=== PATIENT | female | born 1975 | race Caucasian/White ===

== ENCOUNTER → 2016-06-27 | Outpatient (REF) | payer OTHER ==
[2016-06-27 11:44] LABS: MEAN CORPUSCULAR VOLUME 81.2 fl (80.0-96.0); RED CELL DISTRIBUTION WIDTH 14.4 % (11.5-14.5); WHITE BLOOD COUNT 5.9 K/mm3 (4.0-10.0)
[2016-06-27 11:57] LABS: VITAMIN B12 LEVEL 773 PG/ML (247-911)
[2016-06-27 12:18] LABS: ALBUMIN 3.4 GM/DL (3.2-5.2); ALBUMIN/GLOBULIN RATIO 1.03 (1.00-1.93); ALKALINE PHOSPHATASE 70 U/L (45-117); ALT/SGPT 19 U/L (12-78); ANION GAP 8 MEQ/L (8-16); AST/SGOT 10 U/L (15-37); BILIRUBIN,TOTAL 0.2 MG/DL (0.2-1.0); BLOOD UREA NITROGEN 16 MG/DL (7-18); CALCIUM LEVEL 8.4 MG/DL (8.5-10.1); CARBON DIOXIDE LEVEL 24 MEQ/L (21-32); CHLORIDE LEVEL 109 MEQ/L (98-107); CREATININE FOR GFR 0.62 MG/DL (0.55-1.02); FERRITIN 4 NG/ML (8-252); GLOMERULAR FILTRATION RATE > 60.0 (>60); GLUCOSE, FASTING 81 MG/DL (70-105); POTASSIUM SERUM 5.1 MEQ/L (3.5-5.1); SODIUM LEVEL 141 MEQ/L (136-145); TOTAL PROTEIN 6.7 GM/DL (6.4-8.2)
== END ==
LOC: M SFHCLERA 09:50
PROVIDERS: ATTEND Physician Assistant
DX: D50.8 Other iron deficiency anemias (principal); Z98.84 Bariatric surgery status; E55.9 Vitamin D deficiency, unspecified

== ENCOUNTER → 2017-01-23 | Outpatient (CLI) | payer OTHER ==
[2017-01-23 18:29] LABS: VITAMIN B12 LEVEL 880 PG/ML (247-911)
[2017-01-23 18:41] LABS: ALBUMIN 3.6 GM/DL (3.2-5.2); ALBUMIN/GLOBULIN RATIO 1.13 (1.00-1.93); ALKALINE PHOSPHATASE 69 U/L (45-117); ALT/SGPT 25 U/L (12-78); ANION GAP 9 MEQ/L (8-16); AST/SGOT 13 U/L (7-37); BILIRUBIN,TOTAL 0.2 MG/DL (0.2-1.0); BLOOD UREA NITROGEN 14 MG/DL (7-18); CALCIUM LEVEL 8.2 MG/DL (8.5-10.1); CARBON DIOXIDE LEVEL 23 MEQ/L (21-32); CHLORIDE LEVEL 112 MEQ/L (98-107); CREATININE FOR GFR 0.63 MG/DL (0.55-1.02); FERRITIN 9 NG/ML (8-252); GLOMERULAR FILTRATION RATE > 60.0 (>60); GLUCOSE, FASTING 76 MG/DL (70-105); MAGNESIUM LEVEL 2.5 MG/DL (1.8-2.4); PHOSPHORUS LEVEL 4.4 MG/DL (2.5-4.9); POTASSIUM SERUM 4.6 MEQ/L (3.5-5.1); SODIUM LEVEL 144 MEQ/L (136-145); TOTAL PROTEIN 6.8 GM/DL (6.4-8.2)
[2017-01-23 19:38] LABS: BASO # 0.1 10^3/uL (0.0-0.2); BASO % 1.3 % (0.0-1.0); EOS # 0.1 10^3/uL (0.0-0.50); EOS % 2.3 % (0.0-3.0); IMMATURE GRANULOCYTE % 0.2 % (0-0); LYMPH # 1.9 10^3/uL (1.5-4.5); LYMPH % 35.9 % (24.0-44.0); MEAN CORPUSCULAR HEMOGLOBIN 28.1 pg (27.0-33.0); MEAN CORPUSCULAR HGB CONC 31.5 g/dl (32.0-36.5); MEAN CORPUSCULAR VOLUME 89.4 fl (80.0-96.0); MONO # 0.4 10^3/uL (0.0-0.8); MONO % 7.1 % (0.0-5.0); NEUTROPHILS # 2.8 10^3/uL (1.8-7.7); NEUTROPHILS % 53.2 % (36.0-66.0); PLATELET COUNT, AUTOMATED 222 10^3/uL (150-450); RED CELL DISTRIBUTION WIDTH 13.9 % (11.5-14.5); WHITE BLOOD COUNT 5.2 10^3/uL (4.0-10.0)
[2017-01-26 10:41] LABS: PRETREATED FOLATE FOR RBCFOL 14.6 NG/ML
== END ==
LOC: M LRY 10:36
PROVIDERS: ATTEND Surgery
DX: K91.2 Postsurgical malabsorption, not elsewhere classified (principal); E55.9 Vitamin D deficiency, unspecified; Z98.84 Bariatric surgery status

== ENCOUNTER → 2017-03-12 | Outpatient (REF) | payer OTHER | LOC: M SFHCLERA 19:39 | DX: R31.9 Hematuria, unspecified (principal) | CPT/HCPCS: 87186 ==

== ENCOUNTER → 2017-04-20 | Outpatient (REF) | payer OTHER ==
[2017-04-20 20:28] LABS: HCG, SERUM QUANTITATIVE < 1.0 MIU/ML
== END ==
LOC: M SFHCLERA 16:20
DX: N92.6 Irregular menstruation, unspecified (principal)

== ENCOUNTER → 2017-11-21 | Outpatient (REF) | payer OTHER | LOC: M SFHCCLAY 15:51 | DX: Z98.84 Bariatric surgery status (principal); Z13.220 Encounter for screening for lipoid disorders; Z68.29 Body mass index [BMI] 29.0-29.9, adult ==

== ENCOUNTER → 2017-11-29 | Outpatient (REF) | payer OTHER ==
[2017-11-29 12:02] LABS: HEMATOCRIT 35.3 % (36.0-47.0); HEMOGLOBIN 11.5 g/dl (12.0-15.5); MEAN CORPUSCULAR HEMOGLOBIN 28.6 pg (27.0-33.0); MEAN CORPUSCULAR HGB CONC 32.6 g/dl (32.0-36.5); MEAN CORPUSCULAR VOLUME 87.8 fl (80.0-96.0); PLATELET COUNT, AUTOMATED 175 10^3/uL (150-450); RED BLOOD COUNT 4.02 10^6/uL (4.00-5.40); RED CELL DISTRIBUTION WIDTH 13.3 % (11.5-14.5); WHITE BLOOD COUNT 5.1 10^3/uL (4.0-10.0)
[2017-11-29 12:04] LABS: HEMATOCRIT 35.3 % (36.0-47.0)
[2017-11-29 12:37] LABS: ALBUMIN 3.7 GM/DL (3.2-5.2); ALBUMIN/GLOBULIN RATIO 1.32 (1.00-1.93); ALKALINE PHOSPHATASE 71 U/L (45-117); ALT/SGPT 35 U/L (12-78); ANION GAP 5 MEQ/L (8-16); AST/SGOT 16 U/L (7-37); BILIRUBIN,TOTAL 0.3 MG/DL (0.2-1.0); BLOOD UREA NITROGEN 15 MG/DL (7-18); CALCIUM LEVEL 8.4 MG/DL (8.5-10.1); CARBON DIOXIDE LEVEL 27 MEQ/L (21-32); CHLORIDE LEVEL 113 MEQ/L (98-107); CHOLESTEROL LEVEL 149 MG/DL (<200); CREATININE FOR GFR 0.71 MG/DL (0.55-1.30); GLOMERULAR FILTRATION RATE > 60.0 (>58); GLUCOSE, FASTING 82 MG/DL (70-100); HDL CHOLESTEROL 39 MG/DL (>40); IRON (FE) 117 UG/DL (50-170); LDL CHOLESTEROL 89 MG/DL (<100); NON-HDL-C 110 MG/DL; PERCENT SATURATION 28.1 % (13.2-45.0); POTASSIUM SERUM 4.7 MEQ/L (3.5-5.1); SODIUM LEVEL 145 MEQ/L (136-145); TOTAL IRON BINDING CAPACITY 417 UG/DL (250-450); TOTAL PROTEIN 6.5 GM/DL (6.4-8.2); TRIGLYCERIDES LEVEL 106 MG/DL (<150)
[2017-11-29 12:43] LABS: TOTAL 25(OH) VITAMIN D 32.7 NG/ML (30.0-100.0)
[2017-11-30 11:30] LABS: PRETREATED FOLATE FOR RBCFOL 13.7 NG/ML
== END ==
LOC: M SFHCCLAY 08:28
DX: Z98.84 Bariatric surgery status (principal); Z13.220 Encounter for screening for lipoid disorders; Z68.29 Body mass index [BMI] 29.0-29.9, adult
CPT/HCPCS: 83550

== ENCOUNTER → 2017-12-24 | Outpatient (CLI) | payer OTHER | LOC: M RAD 08:45 | DX: Z12.31 Encounter for screening mammogram for malignant neoplasm of breast (principal) | CPT/HCPCS: 77067 ==

== ENCOUNTER 2018-02-28 08:02 | Day surgery (SDC) | payer OTHER ==
[~2018-02-28] VITALS: Ht 154.9 cm; Wt 71.7 kg
[~2018-02-28 08:02] MED LIST: B-12100T2 PO; BIOT2500 PO; CALCTAB9; CENTCHW4 PO; CETI10TA; ESCI10TA2; FERR1TAB8; FIBE62TA; LIDOCAINE 2% INJ 100 MG/5 ML SDV (FOR ANES.) As Ordered ONE; NS 1,000 ML IV ONE; PROPOFOL 200 MG/20 ML VIAL As Ordered ONE; VITA100066 PO
--- NOTE | 2018-02-28 09:57 | ROOR ---
Patient Name: Kacy Ross Procedure Date: 02/28/2018 9:37 AM Date of : 1975 Age: 42 Room: [facility] Gender: Female Note Status: Finalized Procedure: Colonoscopy Indications: Screening in patient at increased risk: Colorectal cancer in mother before age 60 Providers: Cam ORDONEZ MD Referring MD: Katelin GRIFFITHS DO Requesting Provider: Medicines: Monitored Anesthesia Care Complications: No immediate complications. Procedure: Pre-Anesthesia Assessment: - The heart rate, respiratory rate, oxygen saturations, blood pressure, adequacy of pulmonary ventilation, and response to care were monitored throughout the procedure. The Colonoscope was introduced through the anus and advanced to the cecum, identified by appendiceal orifice and ileocecal valve. The colonoscopy was performed without difficulty. The patient tolerated the procedure well. The quality of the bowel preparation was good. Findings: The perianal and digital rectal examinations were normal. Internal hemorrhoids were found during retroflexion. The entire examined colon appeared normal on direct and retroflexion views. Impression: - Internal hemorrhoids. - The entire examined colon is normal on direct and retroflexion views. - No specimens collected. Recommendation: - Repeat colonoscopy in 5 years for screening purposes. Cam Ordonez MD Cam ORDONEZ MD 02/28/2018 9:57:13 AM This report has been signed electronically. Number of Addenda: 0 Note Initiated On: 02/28/2018 9:37 AM Estimated Blood Loss: Estimated blood loss: none.
[2018-02-28 10:15] VITALS: BP 107/56
== END 2018-02-28 10:26 | disposition home or self-care (01) ==
LOC: M OPP 08:02
PROVIDERS: ATTEND Internal Medicine Gastroenterology
DX: K64.8 Other hemorrhoids (principal); Z12.11 Encounter for screening for malignant neoplasm of colon; Z80.0 Family history of malignant neoplasm of digestive organs

== ENCOUNTER 2018-07-31 23:58 | Inpatient (IN) | payer OTHER ==
[~2018-07-31] VITALS: Ht 152.4 cm; Wt 70.6 kg
[~2018-07-31 23:58] MED LIST changes: -CALCTAB9; +CALCTAB9 PO; -CETI10TA; +CETI10TA PO; -ESCI10TA2; +ESCI10TA2 PO; -FERR1TAB8; +FERR1TAB8 PO; -LIDOCAINE 2% INJ 100 MG/5 ML SDV (FOR ANES.) As Ordered ONE; -NS 1,000 ML IV ONE; -PROPOFOL 200 MG/20 ML VIAL As Ordered ONE
[2018-08-01 00:33] LABS: BASO # 0.1 10^3/uL (0.0-0.2); BASO % 1.1 % (0.0-1.0); EOS # 0.2 10^3/uL (0.0-0.50); HEMATOCRIT 38.7 % (36.0-47.0); HEMOGLOBIN 12.5 g/dl (12.0-15.5); LYMPH # 2.2 10^3/uL (1.5-4.5); LYMPH % 29.6 % (24.0-44.0); MEAN CORPUSCULAR HEMOGLOBIN 28.9 pg (27.0-33.0); MEAN CORPUSCULAR HGB CONC 32.3 g/dl (32.0-36.5); MEAN CORPUSCULAR VOLUME 89.6 fl (80.0-96.0); MONO # 0.6 10^3/uL (0.0-0.8); MONO % 7.8 % (0.0-5.0); NEUTROPHILS # 4.2 10^3/uL (1.8-7.7); NEUTROPHILS % 58.2 % (36.0-66.0); PLATELET COUNT, AUTOMATED 212 10^3/uL (150-450); RED BLOOD COUNT 4.32 10^6/uL (4.00-5.40); WHITE BLOOD COUNT 7.3 10^3/uL (4.0-10.0)
[2018-08-01 00:58] LABS: AMPHETAMINES LEVEL URINE NEGATIVE (NEGATIVE); BARBITURATES URINE NEGATIVE (NEGATIVE); BENZODIAZEPINES URINE NEGATIVE (NEGATIVE); CANNABINOIDS URINE NEGATIVE (NEGATIVE); COCAINE METABOLITE URINE NEGATIVE (NEGATIVE); METHADONE URINE NEGATIVE (NEGATIVE); OPIATES URINE NEGATIVE (NEGATIVE); PHENCYCLIDINE URINE NEGATIVE (NEGATIVE)
[2018-08-01 01:01] LABS: ACETAMINOPHEN LEVEL < 2.0 UG/ML (10.0-30.0); ALBUMIN 3.9 GM/DL (3.2-5.2); ALT/SGPT 25 U/L (12-78); BILIRUBIN,DIRECT 0.1 MG/DL (0.0-0.2); BILIRUBIN,TOTAL 0.2 MG/DL (0.2-1.0); BLOOD UREA NITROGEN 14 MG/DL (7-18); CALCIUM LEVEL 8.5 MG/DL (8.5-10.1); CARBON DIOXIDE LEVEL 26 MEQ/L (21-32); CHLORIDE LEVEL 111 MEQ/L (98-107); CPK CREATINE PHOSPHOKINASE 77 U/L (26-192); ETHYL ALCOHOL (ETHANOL) < 0.003 % (0.000-0.010); GLOMERULAR FILTRATION RATE > 60.0 (>58); GLUCOSE, FASTING 91 MG/DL (70-100); POTASSIUM SERUM 3.8 MEQ/L (3.5-5.1); SALICYLATE LEVEL < 1.7 MG/DL (5.0-30.0); SODIUM LEVEL 143 MEQ/L (136-145); TOTAL PROTEIN 7.3 GM/DL (6.4-8.2)
[2018-08-01 01:07] LABS: HCG, SERUM QUALITATIVE NEGATIVE (NEGATIVE)
--- NOTE | 2018-08-01 02:04 | ECGEPIP ---
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
[2018-08-01] MEDS ORDERED: FIBE62TA PO (08:07)
[2018-08-01] MEDS ORDERED: [UNRECOGNIZED DRUG - OTHER] PO (08:07)
[2018-08-01] MEDS ORDERED: SIME80TA PO (08:07)
[2018-08-01] MEDS ORDERED: VITA10002 PO (08:07)
[2018-08-01] MEDS ORDERED: traZODone 50 MG TAB PO PRN (11:45)
[2018-08-01] MEDS ORDERED: ACETAMINOPHEN TAB 650MG DOSE (2X325MG) PO PRN (11:45)
[2018-08-01] MEDS ORDERED: MOM 30ML SUSPENSION UDC PO PRN (11:45)
[2018-08-01] MEDS ORDERED: MAALOX 30 ML SUSP *UDC PO PRN (11:45)
[2018-08-02 07:01] VITALS: BP 126/66
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
[2018-08-02 12:21] VITALS: BP 134/78
[2018-08-02] MEDS: FERROUS SULFATE 325MG TAB PO SCH (12:25)
[2018-08-02] MEDS: VITAMIN D 1,000 INTERNATIONAL UNITS TABLET PO SCH (12:25)
[2018-08-02] MEDS: CYANOCOBALAMIN 500 MCG TAB PO SCH (12:25)
[2018-08-02] MEDS: CETIRIZINE (ZyrTEC) 10 MG TAB PO SCH (12:25)
[2018-08-02] MEDS ORDERED: VENLAFAXINE **XR** 37.5 MG CAPSULE PO ONE (13:00)
--- NOTE | 2018-08-02 14:08 | HPEPDOC ---
General Date of Admission Aug 01, 2018 at 11:42 Date of Service: Aug 02, 2018 Attending Physician: GOYO FAYE MD Chief Complaint The patient is a 42-year-old female admitted with a reason for visit of Unspecified Depressive Disorder. History of Present Illness Patient is a 42-year-old female, admitted to inpatient psychiatric unit on account of depression, anxiety and suicide attempt with drug overdose. She has a prior medical history significant for morbid obesity and is status post gastric bypass 3 years ago. On assessment, she denies any nausea, vomiting, constipation, diarrhea, chest pain, shortness of breath. She requests multivitam ins be restarted. Home Medications Scheduled Biotin (Biotin) 2,500 Mcg Cap, 2,500 MCG PO DAILY, (Reported) Calcium Citrate/Vitamin D3 (Calcitrate + Vit D Caplet) 1 Tab Tab, 2 TAB PO QHS, (Reported) Calcium Polycarbophil (Fiber-Lax) 625 Mg Tablet, 1,250 MG PO QHS, (Reported) Cetirizine HCl (Cetirizine HCl) 10 Mg Tab, 10 MG PO DAILY, (Reported) Cholecalciferol (Vitamin D3) (Vitamin D3) 1,000 Unit Tab, 1,000 UNIT PO DAILY, (Reported) Cyanocobalamin (Vitamin B-12) (Vitamin B-12) 1,000 Mcg Tablet, 1,000 MCG PO DAILY, (Reported) Escitalopram Oxalate (Escitalopram Oxalate) 10 Mg Tab, 10 MG PO DAILY, (Reported) Ferrous Sulfate (Ferrous Sulfate) 325 Mg Tab, 650 MG PO DAILY, (Reported) Pedi Multivit 158/Iron/Vit K1 (Cerovite Jr Tablet Chew) 1 Each Tab.chew, 2 CHW PO DAILY, (Reported) Scheduled PRN Simethicone (Simethicone) 80 Mg Tab.chew, 80 MG PO QID PRN for GAS PAIN, (Reported) Allergies Coded Allergies: No Known Allergies (Unverified , 08/01/18) Past Medical History Medical History Obesity, depression, anxiety. Surgical History Bypass surgery. Family History Father: Diabetes mellitus, hypertension, hyperlipidemia. Mother: Cancer of the colon, diabetes mellitus. A-FIB/CHADSVASC A-FIB History Current/History of A-Fib/PAF?: No Current PO Anticoag Therapy: No Review of Systems Other systems A pertinent 10 point ROS was completed, negative except as noted in the HPI Physical Examination General Exam: Positive: Alert, Cooperative, No Acute Distress Eye Exam: Positive: PERRLA ENT Exam: Positive: Atraumatic, Mucous membr. moist/pink Neck Exam: Positive: Supple; Negative: JVD, thyromegaly Chest Exam: Positive: Clear to auscultation, Normal air movement; Negative: Rales, Rhonchi Heart Exam: Positive: Rate Normal, Regular Rhythm Extremity Exam: Negative: Clubbing, Cyanosis, Edema Skin Exam: Positive: Nl turgor and temperature; Negative: Rash, Breakdown Neuro Exam: Positive: Normal Speech, Strength at 5/5 X4 ext Psych Exam: Positive: Mental status NL; Negative: Anxiety Vital Signs Vital Signs Date Time Temp Pulse Resp B/P (MAP) Pulse Ox O2 Delivery O2 Flow Rate FiO2 08/02/18 12:21 98.9 60 16 134/78 (96) 08/01/18 10:40 97 Room Air Assessment/Plan Morbid obesity -Status post gastric bypass surgery -Restart all vitamins for patient Depression and anxiety -Management by primary team DVT prophylaxis -Patient is frequently ambulatory and has no need for DVT prophylaxis at this time Plan / VTE VTE Prophylaxis Ordered?: No VTE Exclusion Mechanical Proph: Low Risk for VTE PANCHO HOLLIDAY Aug 02, 2018 14:08
[2018-08-02] MEDS: FOLIC ACID 1 MG TAB PO SCH (14:32)
[2018-08-02 18:33] VITALS: BP 129/64
[2018-08-02] MEDS: FIBER-CON 625 MG TAB PO SCH (20:28)
[2018-08-03 06:45] VITALS: BP 142/70
[2018-08-03] MEDS: CYANOCOBALAMIN 500 MCG TAB PO SCH (08:16)
[2018-08-03] MEDS: FERROUS SULFATE 325MG TAB PO SCH (08:16)
[2018-08-03] MEDS: VITAMIN D 1,000 INTERNATIONAL UNITS TABLET PO SCH (08:16)
[2018-08-03] MEDS: FOLIC ACID 1 MG TAB PO SCH (08:16)
[2018-08-03] MEDS: MULTIVITAMINS CHILDREN'S CHEWABLE TABLET PO SCH (08:16)
[2018-08-03] MEDS: CETIRIZINE (ZyrTEC) 10 MG TAB PO SCH (08:16)
[2018-08-03] MEDS ORDERED: VENLAFAXINE **XR** 37.5 MG CAPSULE PO SCH (09:00)
[2018-08-03] MEDS: SIMETHICONE 80 MG CHEW TAB PO PRN (12:39)
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
[2018-08-03 18:00] VITALS: BP 130/72
[2018-08-03] MEDS: FIBER-CON 625 MG TAB PO SCH (20:42)
[2018-08-04 06:35] VITALS: BP 130/64
[2018-08-04] MEDS: MULTIVITAMINS CHILDREN'S CHEWABLE TABLET PO SCH (08:03)
[2018-08-04] MEDS: FOLIC ACID 1 MG TAB PO SCH (08:03)
[2018-08-04] MEDS: VENLAFAXINE **XR** 75MG CAPSULE PO SCH (08:03)
[2018-08-04] MEDS: CYANOCOBALAMIN 500 MCG TAB PO SCH (08:03)
[2018-08-04] MEDS: VITAMIN D 1,000 INTERNATIONAL UNITS TABLET PO SCH (08:03)
[2018-08-04] MEDS: CETIRIZINE (ZyrTEC) 10 MG TAB PO SCH (08:03)
[2018-08-04] MEDS: FERROUS SULFATE 325MG TAB PO SCH (08:03)
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
[2018-08-04 18:00] VITALS: BP 142/85
[2018-08-04] MEDS: FIBER-CON 625 MG TAB PO SCH (20:08)
[2018-08-04] MEDS: SIMETHICONE 80 MG CHEW TAB PO PRN (21:59)
[2018-08-05 06:16] VITALS: BP 114/58
[2018-08-05] MEDS: VITAMIN D 1,000 INTERNATIONAL UNITS TABLET PO SCH (08:24)
[2018-08-05] MEDS: FERROUS SULFATE 325MG TAB PO SCH (08:24)
[2018-08-05] MEDS: VENLAFAXINE **XR** 75MG CAPSULE PO SCH (08:24)
[2018-08-05] MEDS: MULTIVITAMINS CHILDREN'S CHEWABLE TABLET PO SCH (08:24)
[2018-08-05] MEDS: FOLIC ACID 1 MG TAB PO SCH (08:24)
[2018-08-05] MEDS: CETIRIZINE (ZyrTEC) 10 MG TAB PO SCH (08:25)
[2018-08-05] MEDS: CYANOCOBALAMIN 500 MCG TAB PO SCH (08:25)
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
[2018-08-05] MEDS: SIMETHICONE 80 MG CHEW TAB PO PRN (18:05)
[2018-08-05 18:09] VITALS: BP 150/79
[2018-08-05] MEDS: FIBER-CON 625 MG TAB PO SCH (20:23)
[2018-08-06 06:38] VITALS: BP 104/69
[2018-08-06] MEDS: VITAMIN D 1,000 INTERNATIONAL UNITS TABLET PO SCH (08:25)
[2018-08-06] MEDS: CYANOCOBALAMIN 500 MCG TAB PO SCH (08:25)
[2018-08-06] MEDS: FERROUS SULFATE 325MG TAB PO SCH (08:25)
[2018-08-06] MEDS: FOLIC ACID 1 MG TAB PO SCH (08:25)
[2018-08-06] MEDS: VENLAFAXINE **XR** 75MG CAPSULE PO SCH (08:25)
[2018-08-06] MEDS: MULTIVITAMINS CHILDREN'S CHEWABLE TABLET PO SCH (08:25)
[2018-08-06] MEDS: CETIRIZINE (ZyrTEC) 10 MG TAB PO SCH (08:25)
[2018-08-06] MEDS ORDERED: VENL75CA47 PO (08:35)
[2018-08-06] MEDS ORDERED: TRAZ-252 PO (08:35)
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
== END 2018-08-06 11:45 | disposition home or self-care (01) | DRG 751 ==
LOC: M ED 23:58 → M ED INP 08-01 11:42 → M PSY 08-01 12:25
PROVIDERS: ADMIT Psychiatry & Neurology Psychiatry; ATTEND Psychiatry & Neurology Psychiatry
DX: F33.1 Major depressive disorder, recurrent, moderate (principal); E66.01 Morbid (severe) obesity due to excess calories; F41.9 Anxiety disorder, unspecified; Z79.899 Other long term (current) drug therapy

== ENCOUNTER 2018-10-03 09:54 | Inpatient (IN) | payer OTHER ==
[~2018-10-03] VITALS: Ht 152.4 cm; Wt 68.8 kg
[~2018-10-03 09:54] MED LIST changes: +CYAN100049 PO; +FIBE62TA PO; +SIME80TA PO; +TRAZ-252 PO; +VENL75CA47 PO; +[UNRECOGNIZED DRUG - OTHER] PO
[2018-10-03] MEDS ORDERED: VENL150C43 PO (10:28)
[2018-10-03] MEDS ORDERED: EFFE150C2 PO (10:28)
[2018-10-03 13:18] LABS: HEMATOCRIT 39.3 % (36.0-47.0); HEMOGLOBIN 12.8 g/dl (12.0-15.5); MEAN CORPUSCULAR HGB CONC 32.6 g/dl (32.0-36.5); MEAN CORPUSCULAR VOLUME 88.9 fl (80.0-96.0); PLATELET COUNT, AUTOMATED 203 10^3/uL (150-450); RED BLOOD COUNT 4.42 10^6/uL (4.00-5.40); WHITE BLOOD COUNT 6.2 10^3/uL (4.0-10.0)
[2018-10-03 13:32] LABS: ACETAMINOPHEN LEVEL < 2.0 UG/ML (10.0-30.0); ALBUMIN 3.9 GM/DL (3.2-5.2); ALT/SGPT 20 U/L (12-78); BILIRUBIN,DIRECT 0.1 MG/DL (0.0-0.2); BILIRUBIN,TOTAL 0.4 MG/DL (0.2-1.0); BLOOD UREA NITROGEN 14 MG/DL (7-18); CALCIUM LEVEL 8.6 MG/DL (8.5-10.1); CARBON DIOXIDE LEVEL 21 MEQ/L (21-32); CHLORIDE LEVEL 111 MEQ/L (98-107); CREATININE FOR GFR 0.69 MG/DL (0.55-1.30); ETHYL ALCOHOL (ETHANOL) < 0.003 % (0.000-0.010); GLOMERULAR FILTRATION RATE > 60.0 (>58); GLUCOSE, FASTING 149 MG/DL (70-100); SALICYLATE LEVEL < 1.7 MG/DL (5.0-30.0); SODIUM LEVEL 140 MEQ/L (136-145); TOTAL PROTEIN 6.6 GM/DL (6.4-8.2)
[2018-10-03 13:49] LABS: AMPHETAMINES LEVEL URINE NEGATIVE (NEGATIVE); BARBITURATES URINE NEGATIVE (NEGATIVE); BENZODIAZEPINES URINE NEGATIVE (NEGATIVE); CANNABINOIDS URINE NEGATIVE (NEGATIVE); COCAINE METABOLITE URINE NEGATIVE (NEGATIVE); METHADONE URINE NEGATIVE (NEGATIVE); OPIATES URINE NEGATIVE (NEGATIVE); PHENCYCLIDINE URINE NEGATIVE (NEGATIVE)
--- NOTE | 2018-10-03 14:17 | REP ---
TRIMESTER OBSTETRIC SONOGRAPHY: HISTORY: Supervision of . FINDINGS: Transvaginal and transabdominal scanning is performed. Uterus is somewhat enlarged with overall dimensions of 11.4 x 4.9 x 6.2 cm. Both the uterine myometrium and the uterine endometrium are heterogeneous and somewhat difficult to differentiate. To the left in the fundal endometrium, there is a small anechoic area, which could be an early gestational sac. No embryonic pole or yolk sac is seen. Mean sac size diameter is 4.5 mm, which would correspond to a 2-cjue-6-day gestational age estimate. No free fluid is seen. There is a 2.1 cm cyst in the right ovary. Right ovary dimensions are 4.0 x 1.8 x 2.9 cm. Doppler flow in the right ovary is normal with resistive index 0.47. Left ovary measures 4.2 x 2.0 x 2.7 cm. Its Doppler flow is normal with resistive index 0.53. There is 2.0 cm cystic area in the left ovary. There appear to be prominent parametria veins. IMPRESSION: viability cannot be confirmed. Questionable early intrauterine gestational sac 6-cfti-1-day size. There is no free fluid or adnexal mass. Electronically Signed by Cristóbal Shea MD 10/03/2018 05:31 P
[2018-10-03] MEDS ORDERED: CALC-176 PO (14:33)
[2018-10-03] MEDS ORDERED: ACETAMINOPHEN TAB 650MG DOSE (2X325MG) PO PRN (15:45)
[2018-10-03 17:18] VITALS: BP 144/85
[2018-10-04 06:06] VITALS: BP 100/56
--- NOTE | 2018-10-04 11:08 | HPEPDOC ---
General Date of Admission Oct 03, 2018 at 15:35 Date of Service: Oct 04, 2018 Attending Physician: GOYO FAYE MD Chief Complaint The patient is a 43-year-old female admitted with a reason for visit of Unspecified Depressive Disorder. History of Present Illness Patient is a 43-year-old female, prior medical history significant for morbid obesity, S/P gastric bypass, admitted on account of suicidal ideation and aggressive behavior. On initial assessment. Laboratory data was significant for hCG 0.402, indicating patient was . Patient states she had performed 2 tests at home, which had been positive so this was not news to her. On assessment, she denies chest pain, denies shortness of breath, denies weakness, nausea, vomiting. She reports gestational diabetes with prior 2 pregnancies Home Medications Scheduled Biotin (Biotin) 2,500 Mcg Cap, 2,500 MCG PO DAILY, (Reported) Calcium Citrate/Vitamin D3 (Calcium Cit-Vit D 250-200 Tab) 1 Each Tablet, 2 TAB PO QHS, (Reported) Calcium Polycarbophil (Fiber-Lax) 625 Mg Tablet, 1,250 MG PO QHS, (Reported) Cetirizine HCl (Cetirizine HCl) 10 Mg Tab, 10 MG PO DAILY, (Reported) Cholecalciferol (Vitamin D3) (Vitamin D3) 1,000 Unit Tab, 1,000 UNIT PO DAILY, (Reported) Cyanocobalamin (Vitamin B-12) (Vitamin B-12) 1,000 Mcg Tablet, 1,000 MCG PO DAILY, (Reported) Ferrous Sulfate (Ferrous Sulfate) 325 Mg Tab, 650 MG PO DAILY, (Reported) Pedi Multivit 158/Iron/Vit K1 (Cerovite Jr Tablet Chew) 1 Each Tab.chew, 2 CHW PO DAILY, (Reported) Venlafaxine HCl (Venlafaxine HCl ER) 150 Mg Cap.er.24h, 150 MG PO DAILY, (Reported) Scheduled PRN Simethicone (Simethicone) 80 Mg Tab.chew, 80 MG PO QID PRN for GAS PAIN, (Reported) Allergies Coded Allergies: No Known Allergies (Unverified , 08/01/18) Past Medical History Medical History Morbid obesity Surgical History Gastric bypass Family History Father: Diabetes mellitus Mother: Colon cancer. Sibling: Diabetes mellitus, age 44 Social History Denies tobacco, alcohol, polysubstance abuse A-FIB/CHADSVASC A-FIB History Current/History of A-Fib/PAF?: No Current PO Anticoag Therapy: No Review of Systems Other systems A pertinent 10 point review of systems is completed, negative except as stated in the history of presenting illness Physical Examination Other physical findings GENERAL: NAD SKIN : Warm, dry intact HEENT: Atraumatic, normocephalic, PERRL, moist mucous membrane CARDIOVASCULAR: irregular rate and rhythm, S1S2, no JVD, trace edema, distal pulses + palpable RESP: CTAB, no accessory muscle use noted ABDOMEN: BS+ non distended non tender MS: no joint deformities NEURO: Alert and oriented x 3, CN2-12 grossly intact PSYCH: no anxiety or agitation, appropriate mood and affect. Vital Signs Vital Signs Date Time Temp Pulse Resp B/P (MAP) Pulse Ox O2 Delivery O2 Flow Rate FiO2 10/04/18 06:06 99.4 75 18 100/56 (71) 10/03/18 14:20 100 Room Air Laboratory Data Labs 24H Laboratory Tests 2 10/03/18 10:41: POC Beta HCG, Quantitative 402.8 10/04/18 07:50: Bedside Glucose (Misc Panel) 162H Assessment/Plan Hyperglycemia -Random BS 149 With prior history of gestational diabetes with 2 pregnancies -Before meals, at bedtime fingersticks -check Hemoglobin A1c Arrhythmia -On examination -12 Lead EKG -correct electrolytes state -HCG 402 Suicidal ideation -Management by primary team Plan / VTE VTE Prophylaxis Ordered?: No VTE Exclusion Mechanical Proph: Low Risk for VTE PANCHO HOLLIDAY Oct 04, 2018 11:08
[2018-10-04] MEDS: VENLAFAXINE **XR** 75MG CAPSULE PO SCH (11:14)
[2018-10-04 12:11] LABS: HEMOGLOBIN A1c 5.4 %
[2018-10-04 18:06] VITALS: BP 136/66
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
[2018-10-05 06:49] VITALS: BP 110/56
[2018-10-05] MEDS: VENLAFAXINE **XR** 75MG CAPSULE PO SCH (08:09)
[2018-10-05 08:10] LABS: HEMATOCRIT 37.8 % (36.0-47.0); HEMOGLOBIN 12.3 g/dl (12.0-15.5); MEAN CORPUSCULAR HEMOGLOBIN 27.8 pg (27.0-33.0); MEAN CORPUSCULAR HGB CONC 32.5 g/dl (32.0-36.5); MEAN CORPUSCULAR VOLUME 85.5 fl (80.0-96.0); PLATELET COUNT, AUTOMATED 193 10^3/uL (150-450); RED BLOOD COUNT 4.42 10^6/uL (4.00-5.40); WHITE BLOOD COUNT 5.9 10^3/uL (4.0-10.0)
[2018-10-05 08:34] LABS: ALBUMIN 3.9 GM/DL (3.2-5.2); ALT/SGPT 21 U/L (12-78); BILIRUBIN,TOTAL 0.3 MG/DL (0.2-1.0); BLOOD UREA NITROGEN 11 MG/DL (7-18); CALCIUM LEVEL 8.6 MG/DL (8.5-10.1); CARBON DIOXIDE LEVEL 22 MEQ/L (21-32); CHLORIDE LEVEL 111 MEQ/L (98-107); CREATININE FOR GFR 0.67 MG/DL (0.55-1.30); GLOMERULAR FILTRATION RATE > 60.0 (>58); GLUCOSE, FASTING 120 MG/DL (70-100); MAGNESIUM LEVEL 2.4 MG/DL (1.8-2.4); POTASSIUM SERUM 3.7 MEQ/L (3.5-5.1); SODIUM LEVEL 140 MEQ/L (136-145)
[2018-10-05] MEDS: VITAMIN D 1,000 INTERNATIONAL UNITS TABLET PO SCH (11:19)
[2018-10-05] MEDS: FERROUS SULFATE 325MG TAB PO SCH (11:19)
[2018-10-05] MEDS: CYANOCOBALAMIN 500 MCG TAB PO SCH (11:19)
[2018-10-05] MEDS: MULTIVITAMINS CHILDREN'S CHEWABLE TABLET PO SCH (11:20)
--- NOTE | 2018-10-05 15:41 | MHIPNPDOC ---
[facility] Progress Note Progress Note DATE OF SERVICE: 10/05/18 HISTORY: This is a 43-year-old white female living with her boyfriend. Patient has had recent suicidal ideation, threatening to jump in front of traffic. She has been cutting her left wrist and forearm. She is having recent frequent conflicts with her boyfriend. The patient has been feeling more depressed of late. A major precipitating stressor is that of her 18-year-old son who moved out of the house recently . Patient has a chronic history of anxiety and worry. Her depression dates back to childhood, but worsened after her father in 2005. Patient has been on Effexor for several months now, ever since being hospitalized here under the care of Dr. Amador. 2 months ago. Patient states her appetite is improving. She reports her mood is more stable. She is starting to work on a journal. She finds this therapeutic. She did have a mild panic attack this morning. She feels positive about her . Her boyfriend has been supportive. She is tolerating the Effexor well. She has no other complaints VITAL SIGNS: See below. NEW TEST RESULTS: None noted. CURRENT MEDICATIONS: See below. MENTAL STATUS EXAMINATION: Patient is a. 43-year old female, who is living with her boyfriend. Speech: Is, appropriate. Language skills are, within normal limits. Thought processes including: Intact. Thought content:. Appears more positive. Abstract reasoning, and computation:, Intact. Description of associations: Within normal limits. Description of abnormal or psychotic thoughts: None noted. Judgment:. Improving. Insight: Fair. Orientation:. Oriented 3. Recent and remote memory: Fully intact. Attention span and concentration: Within normal limits. Language:, Appropriate. Fund of knowledge:, Within normal limits. Mood:. Some dysphoria with mild depression. Affect: Brighter. DIAGNOSES: 1. Major depression, recurrent. 2., Generalized anxiety disorder. ASSESSMENT: Patient appears to be responding gradually to medication, and milieu therapy treatment MANAGEMENT PLAN:. Continue present management. TIME SPENT:, 30 minutes. Vital Signs Vital Signs Date Time Temp Pulse Resp B/P (MAP) Pulse Ox O2 Delivery O2 Flow Rate FiO2 10/05/18 08:28 Room Air 10/05/18 06:49 99.0 78 18 110/56 (74) 10/03/18 14:20 100 Laboratory Data 24H Labs Laboratory Tests 2 8/16/19 17:08: Bedside Glucose (Misc Panel) 76 10/05/18 06:11: Bedside Glucose (Misc Panel) 83 10/05/18 07:50: Nucleated Red Blood Cells % (auto) 0.0, Anion Gap 7L, Glomerular Filtration Rate > 60.0, Blood Urea Nitrogen 11, Creatinine 0.67, Sodium Level 140, Potassium Level 3.7, Chloride Level 111H, Carbon Dioxide Level 22, Calcium Level 8.6, Aspartate Amino Transf (AST/SGOT) 7, Alanine Aminotransferase (ALT/SGPT) 21, Alkaline Phosphatase 76, Total Bilirubin 0.3, Total Protein 7.0, Albumin 3.9, Magnesium Level 2.4, Albumin/Globulin Ratio 1.26 10/05/18 11:51: Bedside Glucose (Misc Panel) 117H CBC/BMP Laboratory Tests 10/05/18 07:50 Red Blood Count 4.42, Mean Corpuscular Volume 85.5, Mean Corpuscular Hemoglobin 27.8, Mean Corpuscular Hemoglobin Concent 32.5, Red Cell Distribution Width 12.9, Calcium Level 8.6, Aspartate Amino Transf (AST/SGOT) 7, Alanine Aminotransferase (ALT/SGPT) 21, Alkaline Phosphatase 76, Total Bilirubin 0.3, Total Protein 7.0, Albumin 3.9 Current Medications Current Medications Medications (Trade) Dose Ordered Sig/Manjinder Route PRN Reason Start Time Stop Time Status Last Admin Dose Admin Acetaminophen (Tylenol Tab) 650 mg Q6HP PRN PO HEADACHE or DISCOMFORT 10/03/18 15:45 Calcium Polycarbophil (Fiber Con) 2 ea QHS PO 10/05/18 21:00 Calcium/Vitamin D (Oscal D) 500 mg QHS PO 10/05/18 21:00 Cyanocobalamin (Vitamin B12) 1,000 mcg DAILY PO 10/05/18 09:00 10/05/18 11:19 Ferrous Sulfate (Ferrous Sulfate) 650 mg DAILY PO 10/05/18 09:00 10/05/18 11:19 Home Med (Med Rec Complete!) ASDIRECTED XX 10/03/18 14:45 10/03/18 14:45 DC Multivitamins (Fruity Chews-Children'S) 2 tab DAILY PO 10/05/18 09:00 10/05/18 11:20 Venlafaxine HCl (Effexor Xr) 150 mg DAILY PO 10/04/18 09:00 10/05/18 08:09 Vitamin D (Vitamin D) 1,000 units DAILY PO 10/05/18 09:00 10/05/18 11:19 Allergies Coded Allergies: No Known Allergies (Unverified , 08/01/18) ABENA DAMON MD Oct 05, 2018 15:41
--- NOTE | 2018-10-05 16:09 | ECGEPIP ---
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 PVCS IN BIGEMINY ARE NOW NOTED Electronically Signed on 10-05-2018 16:09:40 EDT by Agustin Vidal
[2018-10-05 18:00] VITALS: BP 132/83
[2018-10-05] MEDS: CALCIUM/VITAMIN D 500 MG TAB PO SCH (20:52)
[2018-10-05] MEDS: FIBER-CON 625 MG TAB PO SCH (20:52)
[2018-10-06 06:51] VITALS: BP 108/70
[2018-10-06] MEDS: FERROUS SULFATE 325MG TAB PO SCH (08:40)
[2018-10-06] MEDS: MULTIVITAMINS CHILDREN'S CHEWABLE TABLET PO SCH (08:40)
[2018-10-06] MEDS: VENLAFAXINE **XR** 75MG CAPSULE PO SCH (08:40)
[2018-10-06] MEDS: CYANOCOBALAMIN 500 MCG TAB PO SCH (08:41)
[2018-10-06] MEDS: VITAMIN D 1,000 INTERNATIONAL UNITS TABLET PO SCH (08:41)
[2018-10-06 18:38] VITALS: BP 138/78
[2018-10-06] MEDS: FIBER-CON 625 MG TAB PO SCH (21:09)
[2018-10-06] MEDS: CALCIUM/VITAMIN D 500 MG TAB PO SCH (21:09)
[2018-10-07 06:34] VITALS: BP 113/55
[2018-10-07] MEDS: MULTIVITAMINS CHILDREN'S CHEWABLE TABLET PO SCH (08:29)
[2018-10-07] MEDS: VITAMIN D 1,000 INTERNATIONAL UNITS TABLET PO SCH (08:29)
[2018-10-07] MEDS: VENLAFAXINE **XR** 75MG CAPSULE PO SCH (08:29)
[2018-10-07] MEDS: CYANOCOBALAMIN 500 MCG TAB PO SCH (08:30)
[2018-10-07] MEDS: FERROUS SULFATE 325MG TAB PO SCH (08:30)
--- NOTE | 2018-10-07 15:23 | MHIPNPDOC ---
[facility] Progress Note Progress Note DATE OF SERVICE: 10/06/18 HISTORY: This is a 43-year-old white female living with her boyfriend. Patient has had recent suicidal ideation, threatening to jump in front of traf fic. She has been cutting her left wrist and forearm. She is having recent frequent conflicts with her boyfriend. The patient has been feeling more depressed of late. A major precipitating stressor is that of her 18-year-old son who moved out of the house recently . Patient has a chronic history of anxiety and worry. Her depression dates back to childhood, but worsened after her father in 2005. Patient has been on Effexor for several months now, ever since being hospitalized here under the care of Dr. Amador. 2 months ago. Patient states her appetite is improving. She reports her mood is more stable. She is starting to work on a journal. She finds this therapeutic. She did have a mild panic attack this morning. She feels positive about her . Her boyfriend has been supportive. She is tolerating the Effexor well. She has no other complaints INTERVAL HISTORY: Patient reports that she had a good talk with her 13-year-old son. Apparently his father wants the 18-year-old son to return back home to live with her. She is happy about this. She wants her son together drop to college. She has had no panic attacks today. She finds the Effexor helpful. Patient's supple last night but did wake up several times in night. She finds the therapy groups helpful here VITAL SIGNS: See below. NEW TEST RESULTS: None noted. CURRENT MEDICATIONS: See below. MENTAL STATUS EXAMINATION: Patient is a. 43-year old female, who is living with her boyfriend. Speech: Is, appropriate. Language skills are, within normal limits. Thought processes including: Intact. Thought content:. Appears more brighter. Abstract reasoning, and computation:, Intact. Description of associations: Normal associations. Description of abnormal or psychotic thoughts: None noted. Judgment:. Improving. Insight: Improving Orientation:. Oriented 3. Recent and remote memory: Fully intact. Attention span and concentration: Within normal limits. Language:, Appropriate. Fund of knowledge:, Within normal limits. Mood:. Decrease of mild depression. Affect: Brighter. DIAGNOSES: 1. Major depression, recurrent. 2., Generalized anxiety disorder. ASSESSMENT: Patient appears to be responding gradually to medication, and milieu therapy treatment MANAGEMENT PLAN:. Continue present management. TIME SPENT:, 30 minutes. Vital Signs Vital Signs Date Time Temp Pulse Resp B/P (MAP) Pulse Ox O2 Delivery O2 Flow Rate FiO2 10/07/18 06:34 98.9 66 12 113/55 (74) 10/06/18 07:58 Room Air 10/03/18 14:20 100 Laboratory Data 24H Labs Laboratory Tests 2 10/06/18 16:58: Bedside Glucose (Misc Panel) 74 10/07/18 06:42: Bedside Glucose (Misc Panel) 78 10/07/18 12:22: Bedside Glucose (Misc Panel) 83 Current Medications Current Medications Medications (Trade) Dose Ordered Sig/Manjinder Route PRN Reason Start Time Stop Time Status Last Admin Dose Admin Acetaminophen (Tylenol Tab) 650 mg Q6HP PRN PO HEADACHE or DISCOMFORT 10/03/18 15:45 Calcium Polycarbophil (Fiber Con) 2 ea QHS PO 10/05/18 21:00 10/06/18 21:09 Calcium/Vitamin D (Oscal D) 500 mg QHS PO 10/05/18 21:00 10/06/18 21:09 Cyanocobalamin (Vitamin B12) 1,000 mcg DAILY PO 10/05/18 09:00 10/07/18 08:30 Ferrous Sulfate (Ferrous Sulfate) 650 mg DAILY PO 10/05/18 09:00 10/07/18 08:30 Home Med (Med Rec Complete!) ASDIRECTED XX 10/03/18 14:45 10/03/18 14:45 DC Multivitamins (Fruity Chews-Children'S) 2 tab DAILY PO 10/05/18 09:00 10/07/18 08:29 Venlafaxine HCl (Effexor Xr) 150 mg DAILY PO 10/04/18 09:00 10/07/18 08:29 Vitamin D (Vitamin D) 1,000 units DAILY PO 10/05/18 09:00 10/07/18 08:29 Allergies Coded Allergies: No Known Allergies (Unverified , 08/01/18) ABENA DAMON MD Oct 07, 2018 15:23
[2018-10-07 15:53] VITALS: BP 134/74
--- NOTE | 2018-10-07 16:21 | MHIPNPDOC ---
[facility] Progress Note Progress Note DATE OF SERVICE: 10/07/18 HISTORY: This is a 43-year-old white female living with her boyfriend. Patient has had recent suicidal ideation, threatening to jump in front of tra ffic. She has been cutting her left wrist and forearm. She is having recent frequent conflicts with her boyfriend. The patient has been feeling more depressed of late. A major precipitating stressor is that of her 18-year-old son who moved out of the house recently . Patient has a chronic history of anxiety and worry. Her depression dates back to childhood, but worsened after her father in 2005. Patient has been on Effexor for several months now, ever since being hospitalized here under the care of Dr. Amador. 2 months ago. Patient states her appetite is improving. She reports her mood is more stable. She is starting to work on a journal. She finds this therapeutic. She did have a mild panic attack this morning. She feels positive about her . Her boyfriend has been supportive. She is tolerating the Effexor well. She has no other complaints INTERVAL HISTORY: Patient reports her mood is improved. Further, she had a long talk with her friend who came in to visit last night. They have patched up their relationship. They reviewed their issues of conflict with some resolution. She feels more optimistic about the future. Concentration is improved. Level of energy is improved. Appetite is good. She slept better last night. She is hopeful about th e future. VITAL SIGNS: See below. NEW TEST RESULTS: None noted. CURRENT MEDICATIONS: See below. MENTAL STATUS EXAMINATION: Patient is a. 43-year old female, who is living with her boyfriend. Speech: Is, appropriate. Language skills are, within normal limits. Thought processes including: Intact. Thought content:. Appears much more bright. Abstract reasoning, and computation:, Intact. Description of associations: Normal associations. Description of abnormal or psychotic thoughts: None noted. Judgment:. Improving. Insight: Improving Orientation:. Oriented 3. Recent and remote memory: Fully intact. Attention span and concentration: Within normal limits. Language:, Appropriate. Fund of knowledge:, Within normal limits. Mood:. Minimal depression. Affect: Brighter. DIAGNOSES: 1. Major depression, recurrent. 2., Generalized anxiety disorder. ASSESSMENT: Patient appears to be responding gradually to medication, and milieu therapy treatment Vital Signs Date Time Temp Pulse Resp B/P (MAP) Pulse Ox O2 Delivery O2 Flow Rate FiO2 10/07/18 15:53 98.0 89 19 134/74 (94) 10/07/18 06:34 98.9 66 12 113/55 (74) 10/06/18 18:38 98.4 80 16 138/78 (98) Laboratory Tests 10/06/18 16:58: Bedside Glucose (Misc Panel) 74 10/07/18 06:42: Bedside Glucose (Misc Panel) 78 10/07/18 12:22: Bedside Glucose (Misc Panel) 83 Current Medications Medications (Trade) Dose Ordered Sig/Manjinder Route PRN Reason Start Time Stop Time Status Last Admin Dose Admin Calcium Polycarbophil (Fiber Con) 2 ea QHS PO 10/05/18 21:00 10/06/18 21:09 Calcium/Vitamin D (Oscal D) 500 mg QHS PO 10/05/18 21:00 10/06/18 21:09 Cyanocobalamin (Vitamin B12) 1,000 mcg DAILY PO 10/05/18 09:00 10/07/18 08:30 Ferrous Sulfate (Ferrous Sulfate) 650 mg DAILY PO 10/05/18 09:00 10/07/18 08:30 Multivitamins (Fruity Chews-Children'S) 2 tab DAILY PO 10/05/18 09:00 10/07/18 08:29 Venlafaxine HCl (Effexor Xr) 150 mg DAILY PO 10/04/18 09:00 10/07/18 08:29 Vitamin D (Vitamin D) 1,000 units DAILY PO 10/05/18 09:00 10/07/18 08:29 MANAGEMENT PLAN:. Staff to work on discharge planning. TIME SPENT:, 30 minutes. Vital Signs Vital Signs Date Time Temp Pulse Resp B/P (MAP) Pulse Ox O2 Delivery O2 Flow Rate FiO2 10/07/18 15:53 98.0 89 134/74 (94) 10/06/18 07:58 Room Air 10/03/18 14:20 100 Laboratory Data 24H Labs Laboratory Tests 2 10/06/18 16:58: Bedside Glucose (Misc Panel) 74 10/07/18 06:42: Bedside Glucose (Misc Panel) 78 8/19/19 12:22: Bedside Glucose (Misc Panel) 83 Current Medications Current Medications Medications (Trade) Dose Ordered Sig/Manjinder Route PRN Reason Start Time Stop Time Status Last Admin Dose Admin Acetaminophen (Tylenol Tab) 650 mg Q6HP PRN PO HEADACHE or DISCOMFORT 10/03/18 15:45 Calcium Polycarbophil (Fiber Con) 2 ea QHS PO 10/05/18 21:00 10/06/18 21:09 Calcium/Vitamin D (Oscal D) 500 mg QHS PO 10/05/18 21:00 10/06/18 21:09 Cyanocobalamin (Vitamin B12) 1,000 mcg DAILY PO 10/05/18 09:00 10/07/18 08:30 Ferrous Sulfate (Ferrous Sulfate) 650 mg DAILY PO 10/05/18 09:00 10/07/18 08:30 Home Med (Med Rec Complete!) ASDIRECTED XX 10/03/18 14:45 10/03/18 14:45 DC Multivitamins (Fruity Chews-Children'S) 2 tab DAILY PO 10/05/18 09:00 10/07/18 08:29 Venlafaxine HCl (Effexor Xr) 150 mg DAILY PO 10/04/18 09:00 10/07/18 08:29 Vitamin D (Vitamin D) 1,000 units DAILY PO 10/05/18 09:00 10/07/18 08:29 Allergies Coded Allergies: No Known Allergies (Unverified , 08/01/18) ABENA DAMON MD Oct 07, 2018 16:21
[2018-10-07] MEDS: FIBER-CON 625 MG TAB PO SCH (20:55)
[2018-10-07] MEDS: CALCIUM/VITAMIN D 500 MG TAB PO SCH (20:55)
[2018-10-08 06:38] VITALS: BP 145/70
[2018-10-08] MEDS: MULTIVITAMINS CHILDREN'S CHEWABLE TABLET PO SCH (08:26)
[2018-10-08] MEDS: VITAMIN D 1,000 INTERNATIONAL UNITS TABLET PO SCH (08:26)
[2018-10-08] MEDS: CYANOCOBALAMIN 500 MCG TAB PO SCH (08:26)
[2018-10-08] MEDS: VENLAFAXINE **XR** 75MG CAPSULE PO SCH (08:27)
[2018-10-08] MEDS: FERROUS SULFATE 325MG TAB PO SCH (08:27)
--- NOTE | 2018-10-09 18:33 | MHDS ---
DATE OF ADMISSION: 10/03/2018 DATE OF DISCHARGE: 10/08/2018 VITAL SIGNS: Temperature 98.0, pulse 67, respirations 12, blood pressure 145/70. LABORATORY DATA: CBC and differential within normal limits. Chemistry survey: Normal except for elevated chloride at 111. Anion gap was low at 7. Urine toxicology screen was negative. DISCHARGE DIAGNOSES: 1. Major depression, recurrent 2. Generalized anxiety disorder. DISCHARGE MEDICATIONS: Effexor ER 150 mg per day. CHIEF COMPLAINT: Depression and suicidal ideation. HISTORY OF PRESENT ILLNESS: This is a 43-year-old white female, , living with her boyfriend. Patient has been agitated recently. She has been hostile and aggressive toward him. She has been threatening to jump in front of traffic to harm herself. She has been cutting her left wrist and forearm. Patient feels overwhelmed. The major precipitating stressor is that her 18-year-old son moved out to live with his father. Patient has a chronic history of anxiety and worry. Patient cannot relax. Her depression dates back to childhood but has worsened over the years. Patient was hospitalized here several months ago under the care of Dr. Amador and started on Effexor. PROGRESS ON THE UNIT: Patient's Effexor dosage was continued at 150 mg per day. Patient's mood gradually improved. She became less anxious. Affect improved. She started attending groups. She found the group therapy program quite helpful. She has goals of working on her journal upon discharge. Patient resolved her issues of conflict with her boyfriend. He visited her frequently and was quite supportive. She will be returning home to him. She is happy to be . She plans on following up with outpatient mental health services. Patient appeared to reach maximal hospital benefit. MENTAL STATUS EXAMINATION: At time of discharge, mood and affect were quite bright. No signs of depression. Anxiety was minimal. She is not suicidal or homicidal. No signs of psychosis. Grooming and hygiene quite good. No signs of impulsivity or dangerousness. ASSESSMENT: The patient has responded well to medications and milieu therapy. PLAN: Discharge home to the community.
== END 2018-10-08 10:04 | disposition home or self-care (01) | DRG 566 ==
LOC: M ED 09:54 → M ED INP 15:35 → M PSY 16:14
PROVIDERS: ADMIT Psychiatry & Neurology Addiction Medicine; ATTEND Psychiatry & Neurology Psychiatry
DX: O99.341 Other mental disorders complicating pregnancy, first trimester (principal); R45.851 Suicidal ideations; F33.9 Major depressive disorder, recurrent, unspecified; E66.01 Morbid (severe) obesity due to excess calories; O24.419 Gestational diabetes mellitus in pregnancy, unspecified control; F41.1 Generalized anxiety disorder; O09.521 Supervision of elderly multigravida, first trimester; Z3A.01 Less than 8 weeks gestation of pregnancy; Z79.899 Other long term (current) drug therapy; O99.211 Obesity complicating pregnancy, first trimester

== ENCOUNTER 2018-10-10 19:36 | Emergency (ER) | payer OTHER ==
[~2018-10-10] VITALS: Ht 152.4 cm; Wt 68.8 kg
[2018-10-10 19:36] VITALS: BP 145/70
[~2018-10-10 19:36] MED LIST changes: +CALC-176 PO; +EFFE150C2 PO; +VENL150C43 PO
[2018-10-10 19:56] LABS: BASO # 0.1 10^3/uL (0.0-0.2); BASO % 1.1 % (0.0-1.0); EOS # 0.2 10^3/uL (0.0-0.50); EOS % 2.6 % (0.0-3.0); HEMATOCRIT 37.4 % (36.0-47.0); HEMOGLOBIN 12.2 g/dl (12.0-15.5); LYMPH # 2.1 10^3/uL (1.5-4.5); MEAN CORPUSCULAR HEMOGLOBIN 28.8 pg (27.0-33.0); MEAN CORPUSCULAR HGB CONC 32.6 g/dl (32.0-36.5); MEAN CORPUSCULAR VOLUME 88.2 fl (80.0-96.0); MONO # 0.7 10^3/uL (0.0-0.8); MONO % 8.5 % (0.0-5.0); NEUTROPHILS % 61.6 % (36.0-66.0); PLATELET COUNT, AUTOMATED 206 10^3/uL (150-450); RED BLOOD COUNT 4.24 10^6/uL (4.00-5.40); WHITE BLOOD COUNT 8.1 10^3/uL (4.0-10.0)
[2018-10-10 20:20] LABS: BLOOD UREA NITROGEN 9 MG/DL (7-18); CALCIUM LEVEL 8.3 MG/DL (8.5-10.1); CARBON DIOXIDE LEVEL 24 MEQ/L (21-32); CHLORIDE LEVEL 113 MEQ/L (98-107); CREATININE FOR GFR 0.74 MG/DL (0.55-1.30); GLOMERULAR FILTRATION RATE > 60.0 (>58); GLUCOSE, FASTING 94 MG/DL (70-100); HCG, SERUM QUANTITATIVE 583 MIU/ML; POTASSIUM SERUM 3.8 MEQ/L (3.5-5.1); SODIUM LEVEL 144 MEQ/L (136-145)
== END 2018-10-10 23:10 | disposition left against medical advice (07) ==
LOC: M ED 19:36
DX: Z53.29 Procedure and treatment not carried out because of patient's decision for other reasons (principal)

== ENCOUNTER → 2018-10-24 | Outpatient (CLI) | payer OTHER | LOC: M LAB 16:10 | PROVIDERS: ATTEND Obstetrics & Gynecology Obstetrics | DX: O03.9 Complete or unspecified spontaneous abortion without complication (principal) ==

== ENCOUNTER 2018-11-28 22:25 | Inpatient (IN) | payer OTHER ==
[~2018-11-28] VITALS: Ht 152.4 cm; Wt 66.8 kg
[2018-11-29] MEDS ORDERED: MOM 30ML SUSPENSION UDC PO PRN (01:45)
[2018-11-29] MEDS ORDERED: traZODone 50 MG TAB PO PRN (01:45)
[2018-11-29] MEDS ORDERED: MAALOX 30 ML SUSP *UDC PO PRN (01:45)
[2018-11-29] MEDS ORDERED: ACETAMINOPHEN TAB 650MG DOSE (2X325MG) PO PRN (01:45)
[2018-11-29] MEDS ORDERED: EFFE150C2 PO (02:25)
[2018-11-29 03:16] VITALS: BP 155/88
[2018-11-29] MEDS: CETIRIZINE (ZyrTEC) 10 MG TAB PO SCH (09:00)
[2018-11-29] MEDS: VITAMIN D 1,000 INTERNATIONAL UNITS TABLET PO SCH (09:00)
[2018-11-29] MEDS: CYANOCOBALAMIN 500 MCG TAB PO SCH (09:00)
[2018-11-29] MEDS ORDERED: INFLUENZA QUADRIVALENT PF VACCINE 0.5ML SYRINGE (90686) IM ONE (09:00)
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
[2018-11-29] MEDS ORDERED: hydrOXYzine 50 MG TAB PO PRN (14:00)
[2018-11-29] MEDS ORDERED: VENLAFAXINE **XR** 75MG CAPSULE PO ONE (14:00)
[2018-11-29 17:36] VITALS: BP 134/68
[2018-11-29] MEDS: SIMETHICONE 80 MG CHEW TAB PO PRN (20:22)
[2018-11-29] MEDS: FIBER-CON 625 MG TAB PO SCH (20:23)
[2018-11-29] MEDS: FERROUS SULFATE 325MG TAB PO SCH (20:23)
[2018-11-30 06:48] VITALS: BP 132/68
--- NOTE | 2018-11-30 07:32 | HPE ---
DATE OF ADMISSION: 11/29/2018 Please refer to the psychiatric history and evaluation for further details on this admission. This examination and history is intended for medical issues which may need treatment, followup or consultation on this 43-year-old female. ALLERGIES: - AMOXICILLIN PRIMARY CARE PROVIDER: Dr. Rocha. SOCIAL HISTORY: She is . She has a fiance that she is recently having a breakup with. She has a 13-year-old son. ETOH - none. Smokes - she quit in 2009. Recreational drug use - none. PAST MEDICAL HISTORY: 1. Morbid obesity. 2. Environmental allergies. SURGICAL HISTORY: Gastric bypass. FAMILY HISTORY: Father had diabetes and hypertension, at age 51. Mother had colon cancer, at age 55. HOME MEDICATIONS: - Effexor 150 mg by mouth daily - Biotin 2500 mcg by mouth daily - calcium citrate/vitamin D 250/200 two by mouth at bedtime - multivitamin two by mouth daily - Fiber Con 1250 mg by mouth at bedtime - Cetirizine 10 mg by mouth daily - vitamin D 1000 units by mouth daily - vitamin B12 1000 mcg daily - ferrous sulfate 325 mg by mouth twice a day - simethicone 80 mg chewable by mouth four times a day as needed gas pain REVIEW OF SYSTEMS: 10 systems review was done and was negative other than occasional gas pain and environmental allergies. PHYSICAL EXAMINATION: 43-year-old cooperative female in no acute distress. Height 60 inches. Weight 65.8 kg. Blood pressure 134/68. Pulse 78. Respirations 18. Temperature 98.3. The patient is alert and oriented times three. Pupils equal and react to light. Extraocular movements intact. Cornea and sclera clear. Conjunctiva normal. No facial asymmetry. Pharynx, tongue and gums pink and moist. Tongue is midline. Neck is supple, without lymphadenopathy. No thyromegaly. No goiter. Carotids 2+, without bruit. Chest clear to auscultation, without wheeze or retraction. Heart is regular. Abdomen benign. Bowel sounds positive. Genitourinary ()/Rectal: Not done. Extremities show equal strength, full range of motion. No cyanosis, clubbing or edema. Peripheral pulses equal and palpable bilaterally. Skin is warm and dry. IMPRESSION AND PLAN: 1. Psychiatric. Plan per psychiatry. 2. History of gastric bypass. Continue simethicone 80 by mouth four times a day as needed for gas pain. Continue iron and vitamin B12 and vitamin D3. 3. History of allergies. Continue cetirizine. 4. No acute medical issues.
[2018-11-30] MEDS: CYANOCOBALAMIN 500 MCG TAB PO SCH (08:22)
[2018-11-30] MEDS: VITAMIN D 1,000 INTERNATIONAL UNITS TABLET PO SCH (08:22)
[2018-11-30] MEDS: FERROUS SULFATE 325MG TAB PO SCH ×2 (08:22→21:00)
[2018-11-30] MEDS: VENLAFAXINE **XR** 75MG CAPSULE PO SCH (08:22)
[2018-11-30] MEDS: CETIRIZINE (ZyrTEC) 10 MG TAB PO SCH (08:22)
[2018-11-30] MEDS ORDERED: INFLUENZA QUADRIVALENT PF VACCINE 0.5ML SYRINGE (90686) IM ONE (09:00)
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
[2018-11-30] MEDS: SIMETHICONE 80 MG CHEW TAB PO PRN (09:48)
[2018-11-30 16:03] VITALS: BP 141/78
[2018-11-30] MEDS: FIBER-CON 625 MG TAB PO SCH (21:01)
[2018-12-01 06:37] VITALS: BP 124/70
[2018-12-01] MEDS: CETIRIZINE (ZyrTEC) 10 MG TAB PO SCH (08:14)
[2018-12-01] MEDS: VITAMIN D 1,000 INTERNATIONAL UNITS TABLET PO SCH (08:14)
[2018-12-01] MEDS: VENLAFAXINE **XR** 75MG CAPSULE PO SCH (08:14)
[2018-12-01] MEDS: CYANOCOBALAMIN 500 MCG TAB PO SCH (08:14)
[2018-12-01] MEDS: FERROUS SULFATE 325MG TAB PO SCH ×2 (08:14→20:34)
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
[2018-12-01 15:58] VITALS: BP 147/73
[2018-12-01] MEDS: FIBER-CON 625 MG TAB PO SCH (20:34)
[2018-12-01] MEDS: SIMETHICONE 80 MG CHEW TAB PO PRN (21:08)
[2018-12-02 06:27] VITALS: BP 136/64
[2018-12-02] MEDS: VENLAFAXINE **XR** 75MG CAPSULE PO SCH ×2 (09:00→10:37)
[2018-12-02] MEDS: FERROUS SULFATE 325MG TAB PO SCH (09:08)
[2018-12-02] MEDS: VITAMIN D 1,000 INTERNATIONAL UNITS TABLET PO SCH (09:08)
[2018-12-02] MEDS: CETIRIZINE (ZyrTEC) 10 MG TAB PO SCH (09:08)
[2018-12-02] MEDS: CYANOCOBALAMIN 500 MCG TAB PO SCH (09:08)
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
[2018-12-02] MEDS ORDERED: VENL75CA47 PO (10:12)
[2018-12-02] MEDS ORDERED: ABIL1TAB11 PO (10:12)
== END 2018-12-02 12:10 | disposition home or self-care (01) | DRG 751 ==
LOC: M ED 22:25 → M ED INP 11-29 01:41 → M PSY 11-29 03:15
PROVIDERS: ADMIT Psychiatry & Neurology Addiction Medicine; ATTEND Psychiatry & Neurology Addiction Medicine
DX: F33.1 Major depressive disorder, recurrent, moderate (principal); F41.9 Anxiety disorder, unspecified; Z79.899 Other long term (current) drug therapy; Z87.891 Personal history of nicotine dependence

== ENCOUNTER → 2018-12-09 | Outpatient (REF) | payer OTHER ==
[~2018-12-09] MED LIST changes: +ABIL1TAB11 PO
[2018-12-09 11:27] LABS: HEMATOCRIT 39.9 % (36.0-47.0); HEMOGLOBIN 12.9 g/dl (12.0-15.5); MEAN CORPUSCULAR HEMOGLOBIN 28.8 pg (27.0-33.0); MEAN CORPUSCULAR HGB CONC 32.3 g/dl (32.0-36.5); MEAN CORPUSCULAR VOLUME 89.1 fl (80.0-96.0); PLATELET COUNT, AUTOMATED 193 10^3/uL (150-450); RED BLOOD COUNT 4.48 10^6/uL (4.00-5.40); WHITE BLOOD COUNT 4.9 10^3/uL (4.0-10.0)
[2018-12-09 11:38] LABS: ALBUMIN 3.8 GM/DL (3.2-5.2); ALT/SGPT 28 U/L (12-78); BILIRUBIN,TOTAL 0.3 MG/DL (0.2-1.0); BLOOD UREA NITROGEN 12 MG/DL (7-18); CALCIUM LEVEL 9.3 MG/DL (8.5-10.1); CARBON DIOXIDE LEVEL 25 MEQ/L (21-32); CHLORIDE LEVEL 112 MEQ/L (98-107); CHOLESTEROL LEVEL 162 MG/DL (<200); CREATININE FOR GFR 0.65 MG/DL (0.55-1.30); GLOMERULAR FILTRATION RATE > 60.0 (>58); GLUCOSE, FASTING 88 MG/DL (70-100); HDL CHOLESTEROL 45 MG/DL (>40); IRON (FE) 158 UG/DL (50-170); LDL CHOLESTEROL 95 MG/DL (<100); NON-HDL-C 117 MG/DL; PERCENT SATURATION 38.2 % (13.2-45.0); POTASSIUM SERUM 4.6 MEQ/L (3.5-5.1); SODIUM LEVEL 142 MEQ/L (136-145); TOTAL IRON BINDING CAPACITY 414 UG/DL (250-450); TRIGLYCERIDES LEVEL 108 MG/DL (<150)
[2018-12-09 11:44] LABS: TOTAL 25(OH) VITAMIN D 26.3 NG/ML (30.0-100.0); VITAMIN B12 LEVEL 1087 PG/ML (247-911)
[2018-12-09 11:52] LABS: HEMATOCRIT 39.9 % (36.0-47.0)
== END ==
LOC: M SFHCCLAY 07:36
PROVIDERS: ATTEND Family Medicine
DX: Z98.84 Bariatric surgery status (principal); D50.8 Other iron deficiency anemias; E55.9 Vitamin D deficiency, unspecified; Z79.899 Other long term (current) drug therapy

== ENCOUNTER 2019-10-16 18:53 | Emergency (ER) | payer OTHER ==
[~2019-10-16] VITALS: Ht 154.9 cm; Wt 70.7 kg
[2019-10-16 20:40] VITALS: BP 139/83
== END 2019-10-16 20:45 | disposition home or self-care (01) ==
LOC: M ED 18:53
DX: F41.1 Generalized anxiety disorder (principal); Z79.899 Other long term (current) drug therapy; Z91.14 Patient's other noncompliance with medication regimen; Z98.84 Bariatric surgery status

== ENCOUNTER 2020-01-09 11:36 | Emergency (ER) | payer OTHER ==
[~2020-01-09] VITALS: Ht 154.9 cm; Wt 96.2 kg
[2020-01-09] MEDS ORDERED: ABIL10TA9 PO (11:44)
[2020-01-09 12:54] LABS: BASO # 0.1 10^3/uL (0.0-0.2); BASO % 1.3 % (0.0-1.0); EOS # 0.1 10^3/uL (0.0-0.5); EOS % 2.3 % (0.0-3.0); HEMATOCRIT 39.3 % (36.0-47.0); HEMOGLOBIN 11.8 g/dl (12.0-15.5); LYMPH % 32.2 % (24.0-44.0); MEAN CORPUSCULAR HEMOGLOBIN 25.2 pg (27.0-33.0); MEAN CORPUSCULAR VOLUME 83.8 fl (80.0-96.0); MONO # 0.5 10^3/uL (0.0-0.8); MONO % 7.4 % (0.0-5.0); NEUTROPHILS # 3.5 10^3/uL (1.5-8.5); NEUTROPHILS % 56.5 % (36.0-66.0); PLATELET COUNT, AUTOMATED 265 10^3/uL (150-450); RED BLOOD COUNT 4.69 10^6/uL (4.00-5.40); WHITE BLOOD COUNT 6.1 10^3/uL (4.0-10.0)
[2020-01-09] MEDS ORDERED: ISOVUE-370 76% 100ML VIAL As Ordered ONE (12:55)
[2020-01-09 13:14] LABS: ALBUMIN 4.2 GM/DL (3.2-5.2); BILIRUBIN,DIRECT 0.1 MG/DL (0.0-0.2); BILIRUBIN,TOTAL 0.2 MG/DL (0.2-1.0); TOTAL PROTEIN 7.2 GM/DL (6.4-8.2)
--- NOTE | 2020-01-09 13:20 | REP ---
INDICATION: abd pain r/o infectious process. COMPARISON: None TECHNIQUE: 100 cc Isovue 370 intravenously with out oral bowel preparatory contrast administration. FINDINGS: The lung bases are clear. The liver, gallbladder, spleen, pancreas, adrenal glands, and kidneys are within normal limits. The abdominal aorta and para-aortic regions are within normal limits. The intra-abdominal bowel loops and the mesenteries are within normal limits. No free fluid or free air seen within the abdomen. In the anterior left adnexa there is a 4 cm sized low-density structure having higher than water density Hounsfield unit readings. Without bowel preparatory contrast administration it cannot be stated with the structures arising from. There is a trace amount of free pelvic fluid. The osseous structures are within normal limits. IMPRESSION: Left hemipelvic low-density, likely cystic structure as described above. Although this is likely of ovarian origin that cannot be stated with certainty due to the limitations of the examination as described above. Consider repeat CT examination of the abdomen and pelvis after the administration of both oral bowel preparatory contrast and intravenous contrast or obtain transvesical and transvaginal pelvic ultrasonography. <Electronically signed by Too Kelly > 01/09/20 [id number]
[2020-01-09 15:19] VITALS: BP 149/77
--- NOTE | 2020-01-09 15:32 | REP ---
INDICATION: lower abd pain hx of ovarian cyst. COMPARISON: None. TECHNIQUE: Transabdominal and transvaginal scanning performed. FINDINGS: Uterine dimensions are 11.4 x 5.3 x 4.9 cm. Endometrial echo is 19 mm in AP dimension and centrally placed. The bladder measures 8.9 x 7.2 x 10.4 cm. The right ovary has dimensions of 4.0 x 2.6 x 4.0 cm. It's Doppler flow is normal with a resistive index of 0.35. A complex hypoechoic structure in the right ovary probably represents a complex dominant follicle measuring 2.2 x 1.7 x 1.9 cm. The left ovary dimensions are 5.6 x 3.8 x 4.4 cm. It's Doppler flow was normal with resistive index of 0.60. There is a heterogeneous mass in the left ovary demonstrating hyperechoic and hypoechoic components with a few tiny echogenic foci. It measures 3.5 x 3.2 x 3.5 cm. No free fluid is seen in the cul-de-sac. IMPRESSION: Likely complex dominant follicle right ovary 2.2 cm in maximum diameter. In the left ovary there is a heterogeneous mass with hypoechoic and hyperechoic components. There are tiny echogenic foci within the mass probably representing tiny calcifications. The mass measures 3.5 x 3.2 x 3.5 cm. It may represent a complex cystic or solid mass. Recommend follow-up nonemergent MRI of the pelvis or follow-up ultrasound in 1-2 months. No evidence of ovarian torsion or free fluid. <Electronically signed by Anuj Ritchie > 01/09/20 [id number]
== END 2020-01-09 16:25 | disposition home or self-care (01) ==
LOC: M ED 11:36
DX: N83.9 Noninflammatory disorder of ovary, fallopian tube and broad ligament, unspecified (principal); R93.5 Abnormal findings on diagnostic imaging of other abdominal regions, including retroperitoneum; R30.0 Dysuria; R11.0 Nausea; Z98.84 Bariatric surgery status; Z79.899 Other long term (current) drug therapy
CPT/HCPCS: 36415; 74177; 76830; 76856; 80047; 80076; 81001; 83690; 85025; 93976; 99284; Q9967

== ENCOUNTER → 2020-01-20 | Outpatient (REF) | payer OTHER ==
[~2020-01-20] MED LIST changes: +ABIL10TA9 PO
== END ==
LOC: M PLALAB 08:38
PROVIDERS: ATTEND Advanced Practice Midwife
DX: Z53.9 Procedure and treatment not carried out, unspecified reason (principal); Z80.0 Family history of malignant neoplasm of digestive organs

== ENCOUNTER → 2020-01-21 | Outpatient (REF) | payer OTHER | LOC: M PLALAB 11:01 | PROVIDERS: ATTEND Advanced Practice Midwife | DX: Z80.0 Family history of malignant neoplasm of digestive organs (principal) ==

== ENCOUNTER → 2020-01-23 | Outpatient (CLI) | payer OTHER ==
--- NOTE | 2020-01-23 11:07 | REP ---
INDICATION: N83.209 OVARIAN CYST. COMPARISON: 01/09/2020 TECHNIQUE: Transvesical and transvaginal imaging FINDINGS: The uterus is essentially unchanged in size, shape, and echo pattern. The endometrial echo complex measures 9 mm in its greatest thickness. The right ovary measures 3.3 x 1.3 x 1.4 cm. There is a dominant follicle in the right ovary. The right ovarian RI is 0.58 The left ovary measures 4.4 x 4.2 x 4.4 cm. Once again, within the left ovary there is a 3.6 x 3.1 x 3.3 cm sized heterogenous mass which is essentially unchanged. The left ovarian RI is 0.56. Urinary bladder measures 13 x 10 x 7 cm. IMPRESSION: Persistent solid left ovarian mass as described above. Etiology uncertain. Since there has been no significant change from the prior exam pre and post gadolinium enhanced pelvic MRI as warranted. <Electronically signed by Too Kelly > 01/23/20 [id number]
== END ==
LOC: M WHC 09:54
PROVIDERS: ATTEND Advanced Practice Midwife
DX: N83.202 Unspecified ovarian cyst, left side (principal)

== ENCOUNTER → 2020-02-03 | Outpatient (REF) | payer OTHER | LOC: M PLALAB 15:36 | PROVIDERS: ATTEND Obstetrics & Gynecology | DX: N83.209 Unspecified ovarian cyst, unspecified side (principal); Z53.9 Procedure and treatment not carried out, unspecified reason ==

== ENCOUNTER 2020-07-13 23:50 | Emergency (ER) | payer OTHER ==
[~2020-07-13] VITALS: Ht 154.9 cm; Wt 70.6 kg
[~2020-07-13 23:50] MED LIST changes: +ESCI10TA16 PO; -ESCI10TA2 PO; +SIME80CH5 PO; -SIME80TA PO
[2020-07-13 23:57] VITALS: BP 142/92
== END 2020-07-14 03:18 | disposition left against medical advice (07) ==
LOC: M ED 23:50
DX: Z53.21 Procedure and treatment not carried out due to patient leaving prior to being seen by health care provider (principal)

== ENCOUNTER 2020-08-23 00:22 | Emergency (ER) | payer OTHER ==
[~2020-08-23] VITALS: Ht 154.9 cm; Wt 68.2 kg
[2020-08-23 01:08] LABS: HEMOGLOBIN 10.4 g/dl (12.0-15.5); MEAN CORPUSCULAR HEMOGLOBIN 24.6 pg (27.0-33.0); MEAN CORPUSCULAR HGB CONC 30.6 g/dl (32.0-36.5); MEAN CORPUSCULAR VOLUME 80.6 fl (80.0-96.0); PLATELET COUNT, AUTOMATED 244 10^3/uL (150-450); RED BLOOD COUNT 4.22 10^6/uL (4.00-5.40); WHITE BLOOD COUNT 7.7 10^3/uL (4.0-10.0)
[2020-08-23 01:27] LABS: AMPHETAMINES LEVEL URINE NEGATIVE (NEGATIVE); BARBITURATES URINE NEGATIVE (NEGATIVE); BENZODIAZEPINES URINE NEGATIVE (NEGATIVE); CANNABINOIDS URINE NEGATIVE (NEGATIVE); COCAINE METABOLITE URINE NEGATIVE (NEGATIVE); METHADONE URINE NEGATIVE (NEGATIVE); OPIATES URINE NEGATIVE (NEGATIVE); PHENCYCLIDINE URINE NEGATIVE (NEGATIVE)
[2020-08-23 01:29] LABS: HCG, SERUM QUALITATIVE NEGATIVE (NEGATIVE)
[2020-08-23 01:42] LABS: ACETAMINOPHEN LEVEL < 2.0 UG/ML (10.0-30.0); ALBUMIN 3.9 GM/DL (3.2-5.2); ALT/SGPT 23 U/L (12-78); BILIRUBIN,DIRECT < 0.1 MG/DL (0.0-0.2); BILIRUBIN,TOTAL 0.2 MG/DL (0.2-1.0); BLOOD UREA NITROGEN 10 MG/DL (7-18); CALCIUM LEVEL 8.6 MG/DL (8.5-10.1); CARBON DIOXIDE LEVEL 27 MEQ/L (21-32); CHLORIDE LEVEL 110 MEQ/L (98-107); CREATININE FOR GFR 0.61 MG/DL (0.55-1.30); ETHYL ALCOHOL (ETHANOL) < 0.003 % (0.000-0.010); GLOMERULAR FILTRATION RATE > 60.0 (>58); GLUCOSE, FASTING 100 MG/DL (70-100); POTASSIUM SERUM 3.8 MEQ/L (3.5-5.1); SALICYLATE LEVEL < 1.7 MG/DL (5.0-30.0); SODIUM LEVEL 142 MEQ/L (136-145); TOTAL PROTEIN 6.8 GM/DL (6.4-8.2)
[2020-08-23 04:03] VITALS: BP 178/86
== END 2020-08-23 04:10 | disposition home or self-care (01) ==
LOC: M ED 00:22
DX: S00.93XA Contusion of unspecified part of head, initial encounter (principal); Y04.8XXA Assault by other bodily force, initial encounter; Y92.9 Unspecified place or not applicable; Y93.9 Activity, unspecified; Y99.9 Unspecified external cause status; F43.0 Acute stress reaction; F33.9 Major depressive disorder, recurrent, unspecified; F41.9 Anxiety disorder, unspecified; F43.10 Post-traumatic stress disorder, unspecified; E78.5 Hyperlipidemia, unspecified; Z79.899 Other long term (current) drug therapy